=== PATIENT | male | born 2000 | race Caucasian/White ===

== ENCOUNTER 2020-06-17 01:55 | Emergency (ER) | payer SELFPAY ==
[2020-06-17] MEDS ORDERED: Sodium Chloride 0.9% 10 ML Syringe FLUSH PRN (02:06)
[2020-06-17] MEDS ORDERED: Sodium Chloride 0.9% 1,000 ML IV SCH (02:15)
[2020-06-17] MEDS ORDERED: Ondansetron 4 MG/2 ML SDV ONE (02:36)
[2020-06-17] MEDS ORDERED: Ondansetron 4 MG/2 ML SDV IVPUSH ONE (02:48)
--- NOTE | 2020-06-17 03:29 | EDM.PDOC ---
ED HPI GENERAL MEDICAL PROBLEM - General Chief Complaint: Drug or Alcohol Abuse Stated Complaint: [facility] Time Seen by Provider: 06/17/20 02:06 Source of Information: Reports: EMS, RN Notes Reviewed - History of Present Illness INITIAL COMMENTS - FREE TEXT/NARRATIVE: 20 yr old male brought in by EMS very intoxicated, was also agitated [employer], now on arrival to ED unresponsive verbally, soundly sleeping with good airway, BP and O2 sats. Is reported to have drank most if not all of a bottle of whiskey. No known drug ingestion. No further hx available at time of exam. - Related Data Allergies Allergy/AdvReac Type Severity Reaction Status Date / Time Penicillins Allergy Other Verified 06/17/20 01:59 Home Meds: Home Meds . [Unable to Verify Home Med List] 06/17/20 [History] Past Medical History - Past Health History Medical/Surgical History: Denies Medical/Surgical History Respiratory History: Reports: Asthma Social & Family History - Family History Family Medical History: No Pertinent Family History - Caffeine Use Caffeine Use: Reports: Coffee Other Caffeine Use: preworkout ED ROS GENERAL - Review of Systems Review Of Systems: See Below Reason Not Obtained: AMS - Physical Exam Exam: See Below General Appearance: Obtunded Eye Exam: Bilateral Eye: PERRL Throat/Mouth: Normal Inspection Head Exam: Atraumatic. No: Facial Swelling Neck: Other (No JVD) Respiratory/Chest: No Respiratory Distress, Lungs Clear, No Accessory Muscle Use. No: Rhonchi, Wheezing Cardiovascular: Regular Rate, Rhythm GI/Abdominal: Non-Tender Extremities: Normal Inspection. No: Pedal Edema Skin Exam: Warm, Dry, Normal Color, No Rash Course - Vital Signs Last Recorded V/S: Last Vital Signs Temp 97.0 F 06/17/20 01:56 Pulse 78 06/17/20 01:56 Resp 15 06/17/20 01:56 BP 125/71 06/17/20 01:56 Pulse Ox 95 06/17/20 01:56 - Orders/Labs/Meds Labs: Laboratory Tests 06/17/20 06/17/20 06/17/20 Range/Units 02:01 02:01 02:01 WBC 10.61 H (4.23-9.07) K/mm3 RBC 5.28 (4.63-6.08) M/mm3 Hgb 17.1 (13.7-17.5) gm/dl Hct 47.9 (40.1-51.0) % MCV 90.7 (79.0-92.2) fl MCH 32.4 H (25.7-32.2) pg MCHC 35.7 H (32.2-35.5) g/dl RDW Std Deviation 40.2 (35.1-43.9) fL Plt Count 300 (163-337) K/mm3 MPV 9.2 L (9.4-12.3) fl Neut % (Auto) 67.5 (34.0-67.9) % Lymph % (Auto) 23.1 (21.8-53.1) % Dade % (Auto) 4.1 L (5.3-12.2) % Eos % (Auto) 4.8 (0.8-7.0) Baso % (Auto) 0.3 (0.1-1.2) % Neut # (Auto) 7.16 H (1.78-5.38) K/mm3 Lymph # (Auto) 2.45 (1.32-3.57) K/mm3 Dade # (Auto) 0.44 (0.30-0.82) K/mm3 Eos # (Auto) 0.51 (0.04-0.54) K/mm3 Baso # (Auto) 0.03 (0.01-0.08) K/mm3 Manual Slide Review Normal smear Sodium 142 (136-145) mEq/L Potassium 3.3 L (3.5-5.1) mEq/L Chloride 104 (98-107) mEq/L Carbon Dioxide 24 (21-32) mEq/L Anion Gap 17.3 H (5-15) BUN 10 (7-18) mg/dL Creatinine 1.1 (0.7-1.3) mg/dL Est Cr Clr Drug Dosing 115.62 mL/min Estimated GFR (MDRD) > 60 (>60) mL/min BUN/Creatinine Ratio 9.1 L (14-18) Glucose 97 (74-106) mg/dL Calcium 8.9 (8.5-10.1) mg/dL Total Bilirubin 0.7 (0.2-1.0) mg/dL AST 20 (15-37) U/L ALT 22 (16-63) U/L Alkaline Phosphatase 74 (46-116) U/L Total Protein 7.9 (6.4-8.2) g/dl Albumin 4.2 (3.4-5.0) g/dl Globulin 3.7 gm/dL Albumin/Globulin Ratio 1.1 (1-2) Acetaminophen 0 L (10-30) ug/mL Ethyl Alcohol 0.26 (0.00) gm% Meds: Medications Discontinued Medications Generic Name Dose Route Start Last Admin Trade Name Freq PRN Reason Stop Dose Admin Sodium Chloride 1,000 mls @ 999 mls/hr 06/17/20 02:15 06/17/20 02:11 Normal Saline IV 999 mls/hr ONETIME MARY Administration Dextrose/Lactated Ringer's 1,000 mls @ 150 mls/hr 06/17/20 03:30 06/17/20 03:28 Dextrose 5%-Lactated Ringers IV 150 mls/hr ASDIRECTED MARY Administration Ondansetron HCl Confirm 06/17/20 02:36 06/17/20 03:28 Zofran Administered 06/17/20 02:37 Not Given Dose 4 mg .ROUTE .STK-MED ONE Ondansetron HCl 4 mg 06/17/20 02:48 06/17/20 02:50 Zofran IVPUSH 06/17/20 02:49 4 mg ONETIME ONE Administration Sodium Chloride 10 ml 06/17/20 02:06 06/17/20 02:11 Saline Flush FLUSH 10 ml ASDIRECTED PRN Administration Keep Vein Open - Re-Assessments/Exams Free Text/Narrative Re-Assessment/Exam: 06/17/20 03:31 etoh 0.26. anion gap mildly elevated. Have given 1 liter NS. Will continue with D5LR at 150 per hr. 06/17/20 07:16. Feels ready to go home, denies any type of overdose or feelings of self harm. Departure - Departure Time of Disposition: 07:17 Disposition: Home, Self-Care 01 Condition: Fair Clinical Impression: Altered mental status associated with intoxication Alcohol intoxication Qualifiers: Complication of substance-induced condition: uncomplicated Qualified Code(s): F10.920 - Alcohol use, unspecified with intoxication, uncomplicated - Discharge Information Instructions: Binge-Drinking Information, Adult Referrals: PCP,None [Primary Care Provider] - Forms: ED Department Discharge Additional Instructions: Avoid further alcohol today. Drink plenty of water. See your medical provider as needed. Return to ED as needed. Sepsis Event Note (ED) - Evaluation Sepsis Screening Result: No Definite Risk
[2020-06-17] MEDS ORDERED: Dextrose 5%-Lactated Ringers 1,000 ML IV SCH (03:30)
== END 2020-06-17 07:36 | disposition home or self-care (01) ==
LOC: JD.ED 01:55
DX: F10.120 Alcohol abuse with intoxication, uncomplicated (principal); R79.89 Other specified abnormal findings of blood chemistry; J45.909 Unspecified asthma, uncomplicated; Z88.0 Allergy status to penicillin
CPT/HCPCS: 36415; 80053; 80307; 85025; 96374; 99284; J2405; J7030; J7121